=== PATIENT | female | born 1965 | race Caucasian/White ===

== ENCOUNTER 2018-12-24 14:40 | Inpatient (IN) | payer OTHER, MEDICAID ==
[~2018-12-24] VITALS: Ht 165.1 cm; Wt 78.2 kg
[~2018-12-24 14:40] MED LIST: SERT25TA74 PO
[2018-12-24] MEDS ORDERED: SODIUM CHLORIDE 0.9% 1000ML BAG (SEPSIS BOLUS) IV ONE (15:15)
[2018-12-24 15:43] LABS: BASOPHILS % 0.3 % (0.0-2.0); EOSINOPHILS % 0.4 % (0.0-5.0); HEMATOCRIT. 48.9 % (36.0-48.0); HEMOGLOBIN. 16.2 g/dL (12.0-16.0); LYMPHOCYTES % 13.5 % (20.0-50.0); MEAN CORPUSCULAR HEMOGLOBIN 28.8 pg (28.0-32.0); MEAN CORPUSCULAR VOLUME 86.7 fL (81.0-99.0); MEAN PLATELET VOLUME 6.8 fl (7.4-10.4); MONOCYTES % 5.4 % (2.0-8.0); NEUTROPHILS % 80.4 % (40.0-76.0); PLATELET 259 x1000/uL (130-400); RED BLOOD CELL COUNT 5.64 mill/uL (4.2-5.4); RED CELL DISTRIBUTION WIDTH 15.1 % (11.6-14.6)
[2018-12-24 15:49] LABS: PROTHROMBIN TIME 9.9 sec (9.6-11.0)
[2018-12-24] MEDS ORDERED: PIPERACILLIN/TAZ 3.375G PREMIX 50 ML IV ONE (17:30)
[2018-12-24 17:43] LABS: CHLORIDE 105 mEq/L (98-107)
[2018-12-24 17:54] LABS: CLARITY URINE TURBID (CLEAR); COLOR URINE RED (YELLOW); KETONES URINE NEGATIVE (NEGATIVE); LEUKOCYTE ESTERASE URINE 3+ (NEGATIVE); NITRITE URINE POSITIVE (NEGATIVE); OCCULT BLOOD URINE 2+ (NEGATIVE); PH URINE >=9.0 (4.5-8.0); PROTEIN URINE 2+ (NEGATIVE); SPECIFIC GRAVITY URINE 1.013 (1.005-1.030); UROBILINOGEN URINE 0.2 E.U./dL (0.2-1.0)
[2018-12-24] MEDS ORDERED: MORPHINE SULFATE 2 MG/ML CPJ (NOT FOR IM USE) IV ONE (18:00)
[2018-12-24] MEDS ORDERED: MORPHINE SULFATE 4 MG/ML CPJ (NOT FOR IM USE) IV ONE (18:30)
[2018-12-24] MEDS ORDERED: IOHEXOL-300 100 ML BOTTLE ONE (19:55)
[2018-12-24] MEDS ORDERED: MORPHINE SULFATE 4 MG/ML CPJ (NOT FOR IM USE) IV STA (20:01)
[2018-12-24] MEDS ORDERED: ONDANSETRON HCL 4MG/2ML INJ IV STA (20:01)
[2018-12-24] MEDS ORDERED: HYDRALAZINE 20MG/ML VIAL IV PRN (21:00)
[2018-12-24] MEDS ORDERED: CLONIDINE 0.1MG TABLET PO PRN (21:00)
[2018-12-24] MEDS ORDERED: ACETAMINOPHEN 325MG TABLET PO PRN (21:00)
[2018-12-24] MEDS ORDERED: MAGNESIUM/ALUMINUM HYDROXIDE/SIMETHICONE 30ML UDC PO PRN (21:00)
[2018-12-24] MEDS ORDERED: DIPHENHYDRAMINE 50MG/ML VIAL IV PRN (21:00)
[2018-12-24] MEDS ORDERED: ONDANSETRON HCL 4MG/2ML INJ IV PRN (21:00)
[2018-12-24] MEDS ORDERED: HYDROMORPHONE HCL/PF 2MG/ML CPJ IV PRN (21:15)
[2018-12-24 21:50] VITALS: BP 177/99
[2018-12-24] MEDS ORDERED: Atenolol PO (22:43)
[2018-12-24] MEDS ORDERED: Cephalexin PO (22:43)
[2018-12-24] MEDS ORDERED: AMIT100T2 MT (22:43)
[2018-12-24] MEDS ORDERED: BUSP15TA3 MT (22:43)
[2018-12-24] MEDS ORDERED: RIVA20TA MT (22:43)
[2018-12-24] MEDS ORDERED: LEVO25TA7 MT (22:43)
[2018-12-24] MEDS ORDERED: CLON1TAB12 MT (22:43)
[2018-12-24] MEDS: SODIUM CHLORIDE 0.9% 1,000 ML IV SCH (22:49)
[2018-12-24] MEDS ORDERED: LEVOFLOXACIN 500MG PREMIX 100 ML IV SCH (23:00)
[2018-12-25] MEDS ORDERED: CLONAZEPAM 1MG TABLET PO PRN (01:00)
[2018-12-25] MEDS: BUSPIRONE HCL 5MG TABLET PO SCH ×4 (01:52→21:17)
[2018-12-25] MEDS: KETOROLAC 30MG/ML VIAL IV PRN ×4 (01:52→21:33)
[2018-12-25 04:00] VITALS: BP 105/52
[2018-12-25] MEDS: LEVOTHYROXINE SODIUM 25MCG TABLET PO SCH (06:31)
[2018-12-25] MEDS ORDERED: PHENAZOPYRIDINE HCL 100MG TABLET PO SCH ×2 (07:50→12:50)
[2018-12-25 07:51] VITALS: BP 116/63
[2018-12-25] MEDS: SODIUM CHLORIDE 0.9% 1,000 ML IV SCH ×2 (08:43→17:43)
[2018-12-25 12:09] VITALS: BP 143/73
[2018-12-25 15:49] VITALS: BP 171/92
[2018-12-25] MEDS ORDERED: RIVAROXABAN 20 MG TABLET PO SCH (17:00)
[2018-12-25] MEDS: PHENAZOPYRIDINE HCL 100MG TABLET PO SCH (17:40)
[2018-12-25 20:04] VITALS: BP 190/90
[2018-12-25] MEDS ORDERED: AMITRIPTYLINE 50MG TABLET PO SCH (21:00)
[2018-12-25] MEDS ORDERED: HYDROMORPHONE HCL/PF 2MG/ML CPJ IV PRN (21:15)
[2018-12-25] MEDS ORDERED: LEVOFLOXACIN 500MG PREMIX 100 ML IV SCH (23:00)
[2018-12-26] VITALS: BP 150/71
[2018-12-26 04:00] VITALS: BP 146/80
[2018-12-26] MEDS: BUSPIRONE HCL 5MG TABLET PO SCH (06:09)
[2018-12-26] MEDS: SODIUM CHLORIDE 0.9% 1,000 ML IV SCH (06:10)
[2018-12-26] MEDS: LEVOTHYROXINE SODIUM 25MCG TABLET PO SCH (06:21)
[2018-12-26 08:00] VITALS: BP 148/67
[2018-12-26] MEDS: PHENAZOPYRIDINE HCL 100MG TABLET PO SCH (08:42)
[2018-12-26 10:56] VITALS: BP 148/67
== END 2018-12-26 12:15 | disposition home or self-care (01) | DRG 463 ==
LOC: ER 14:40 → 6WST 18:00 → EDBEDREQ 18:06 → EDBEDREQSVC 18:06 → ENRESERV 20:43
PROVIDERS: ADMIT Internal Medicine; ATTEND Internal Medicine
DX: N30.01 Acute cystitis with hematuria (principal); E87.2 Acidosis; K76.0 Fatty (change of) liver, not elsewhere classified; K52.9 Noninfective gastroenteritis and colitis, unspecified; B96.20 Unspecified Escherichia coli [E. coli] as the cause of diseases classified elsewhere; E03.9 Hypothyroidism, unspecified; F41.1 Generalized anxiety disorder; F43.10 Post-traumatic stress disorder, unspecified; I10 Essential (primary) hypertension; K59.00 Constipation, unspecified; Z83.3 Family history of diabetes mellitus; Z85.3 Personal history of malignant neoplasm of breast; Z90.13 Acquired absence of bilateral breasts and nipples; Z90.49 Acquired absence of other specified parts of digestive tract; Z90.710 Acquired absence of both cervix and uterus; Z92.21 Personal history of antineoplastic chemotherapy; Z98.82 Breast implant status
CPT/HCPCS: 36415; 71045; 74177; 83605; 84145; 84484; 86850; 86900; 87077; 87186; 93005; 96365; 96375; 96376; 99291; J0360; J1170; J1885; J1956; J2270; J2405; J2543; J7030; Q9967; A4315